=== PATIENT | female | born 1985 | race African-American/Black ===

== ENCOUNTER 2019-11-18 20:25 | Emergency (ER) | payer OTHER ==
[~2019-11-18] VITALS: Ht 157.5 cm; Wt 66.7 kg
[~2019-11-18 20:25] MED LIST: APAP500 PO; AZITHROMYC200 MG/52 GT; BISACODYL SUPP10 MG RE; DERMOPLAST SPRA56 ML; HYDROCORTISONE 01 OZ TP; IBUPROFEN 400400 M1 PO; IBUPROFEN 600600 M1 PO; IBUPROFEN 800800 M1 PO; IRON325 PO; KEFLEX500 MG PO; LABETALOL 100100 MG PO; LANOLIN ANHYDRO30 GM TOP; NORCO 5-325 TA1 EACH PO; PRENATAL PO; SOLU MEDROL IV; STEROID; TUCKS MEDICATE1 EAC1; ZOFRAN ODT4 MG PO; ZOFRAN4 MG IV; [UNRECOGNIZED DRUG - OTHER] PO
[2019-11-18 21:02] LABS: ABSOLUTE NEUTROPHILS 3.8 thou/uL (1.4-8.2); BASOPHILS 1.1 % (0.0-2.0); EOSINOPHILS 5.2 % (0.0-3.0); HEMATOCRIT 38.8 % (37.0-47.0); LYMPHOCYTES 42.5 % (24.0-44.0); MCH 29.9 pg (26.0-34.0); MCHC 33.5 g/dL (28.0-37.0); MCV 89.4 fL (80.0-100.0); MONOCYTES 5.7 % (1.0-8.0); PLATELET COUNT 234 thou/uL (150-400); POLYS 45.5 % (36.0-66.0); RBC 4.34 mil/uL (4.20-5.00); RDW 13.8 % (10.5-14.5); WBC 8.3 thou/uL (4.0-11.0)
[2019-11-18 21:07] LABS: ANION GAP 10 mmol/L (7-16); BUN 11 mg/dL (7-18); CALCIUM 8.9 mg/dL (8.5-10.1); CHLORIDE 102 mmol/L (98-107); CO2 24 mmol/L (21-32); GLUCOSE 118 mg/dL (74-106); POTASSIUM 4.2 mmol/L (3.5-5.1); SODIUM 136 mmol/L (136-145)
[2019-11-18 21:16] LABS: TROPONIN-I <0.06 ng/mL (<0.06)
[2019-11-19 00:32] VITALS: BP 119/70
--- NOTE | 2019-11-20 13:03 | EKG ---
[facility] [place] [address] ELECTROCARDIOGRAM REPORT Name: MINA DOBSON Room #: DEP [facility]#: [id number] Admission: 11/18/19 Attend Phys: Discharge: 11/19/19 Date of : 83 Report #: [id number] THIS REPORT FOR: cc: JANETT - Shelia family physician/PCP JANETT - Shelia family physician/PCP Ruel Barboza MD ~ THIS REPORT FOR: //name// [facility] ED Test Date: 2019-11-18 Test Time: 20:38:20 Pat Name: MINA DOBSON Department: Room: Gender: F [employer]: HAL : [id number] Requested By: Garrison Torres Order Number: [id number] MD: Ruel Barboza Measurements Intervals [place] Rate: 60 P: 23 AK: 106 QRS: 53 QRSD: 91 T: 48 QT: 394 QTc: 394 Interpretive Statements Sinus rhythm Short AK interval Consider left ventricular hypertrophy Compared to ECG 04/16/2012 17:34:42 Short AK interval now present Sinus bradycardia no longer present Electronically Signed On 11-20-2019 13:01:51 CDT by Ruel Barboza [email or web address] <ELECTRONICALLY SIGNED> By: Ruel Barboza MD 11/20/19 1301 37 37 Ruel Barboza MD /EPI
== END 2019-11-19 00:34 | disposition home or self-care (01) ==
LOC: ER 20:25
PROVIDERS: Emergency Medicine
DX: R07.89 Other chest pain (principal); R79.1 Abnormal coagulation profile; J02.9 Acute pharyngitis, unspecified; R06.02 Shortness of breath; Z98.51 Tubal ligation status; Z88.5 Allergy status to narcotic agent; Z88.8 Allergy status to other drugs, medicaments and biological substances

== ENCOUNTER 2020-06-13 23:02 | Emergency (ER) | payer OTHER ==
[~2020-06-13] VITALS: Ht 157.5 cm; Wt 65.8 kg
[2020-06-14 00:11] LABS: HEMATOCRIT 36.4 % (37.0-47.0); MCH 29.6 pg (26.0-34.0); MCHC 33.1 g/dL (28.0-37.0); MCV 89.5 fL (80.0-100.0); RBC 4.07 mil/uL (4.20-5.00); RDW 13.1 % (10.5-14.5); WBC 7.5 thou/uL (4.0-11.0)
[2020-06-14 00:18] LABS: ANION GAP 11 mmol/L (7-16); BUN 11 mg/dL (7-18); CALCIUM 9.1 mg/dL (8.5-10.1); CHLORIDE 105 mmol/L (98-107); CO2 24 mmol/L (21-32); CREATININE 0.9 mg/dL (0.6-1.0); GLUCOSE 99 mg/dL (74-106); POTASSIUM 3.6 mmol/L (3.5-5.1); SODIUM 140 mmol/L (136-145)
[2020-06-14 00:28] LABS: ALBUMIN 4.1 g/dL (3.4-5.0); DIRECT BILIRUBIN 0.1 mg/dL (<0.1-0.2); LIPASE 125 U/L (73-393); SGOT 18 U/L (15-37); SGPT 23 U/L (30-65); TOTAL BILIRUBIN 0.3 mg/dL (0.2-1.0); TOTAL PROTEIN 7.9 g/dL (6.4-8.2); TROPONIN-I <0.06 ng/mL (<0.06)
[2020-06-14 01:02] LABS: URINE BILIRUBIN NEGATIVE (Negative); URINE BLOOD TRACE (Negative); URINE CLARITY CLEAR; URINE COLOR YELLOW; URINE GLUCOSE-RANDOM* NEGATIVE (Negative); URINE KETONES NEGATIVE (Negative); URINE LEUKOCYTES-REFLEX NEGATIVE (Negative); URINE NITRITE-REFLEX NEGATIVE (Negative); URINE PROTEIN (DIPSTICK) NEGATIVE (Negative); URINE SPECIFIC GRAVITY 1.025 (1.005-1.035); URINE UROBILINOGEN 0.2 E.U./dl (0.2-1.0)
[2020-06-14] MEDS ORDERED: ZOFRAN ODT4 MG PO (01:12)
[2020-06-14 01:46] VITALS: BP 103/52
== END 2020-06-14 01:40 | disposition home or self-care (01) ==
LOC: ER 23:02
PROVIDERS: Emergency Medicine
DX: R10.84 Generalized abdominal pain (principal); R11.2 Nausea with vomiting, unspecified; R53.1 Weakness; Z88.5 Allergy status to narcotic agent; Z88.8 Allergy status to other drugs, medicaments and biological substances